=== PATIENT | female | born 1980 | race African-American/Black ===

== ENCOUNTER 2017-10-24 22:10 | Emergency (ER) | payer OTHER ==
[2017-10-24] MEDS ORDERED: traMADol HCl 50 MG TAB ONE (23:28)
== END 2017-10-24 23:44 | disposition home or self-care (01) ==
LOC: NAV ERS 22:10
DX: H11.31 Conjunctival hemorrhage, right eye (principal); J45.909 Unspecified asthma, uncomplicated; Z79.899 Other long term (current) drug therapy
CPT/HCPCS: 99283